=== PATIENT | female | born 1990 | race Native Hawaiian/Other Pacific Islander ===

== ENCOUNTER 2018-03-30 14:18 | Emergency (ER) | payer MEDICAID, OTHER ==
[2018-03-30] MEDS ORDERED: Lactated Ringer's 1,000 ML IV SCH (15:30)
[2018-03-30 16:18] LABS: SQUAMOUS EPITHIAL 15 /hpf (0-5); URINE BACTERIA RARE (<OCC); URINE BILIRUBIN NEGATIVE (NEGATIVE); URINE BLOOD NEGATIVE (NEGATIVE); URINE CLARITY CLOUDY (Clear); URINE COLOR YELLOW (YELLOW); URINE GLUCOSE (UA) NEG (Normal); URINE LEUKOCYTE ESTERASE NEG Leu/uL (Negative); URINE PROTEIN 30 mg/dL (NEGATIVE); URINE UROBILINOGEN 0.2-1.0 mg/dL (0.2-1.0)
--- NOTE | 2018-03-30 18:14 | OBHP ---
Datetime: 03/30/2018 15:26 IP Adm Impression: , intrauterine IP Admit Plan: Observation/Evaluation; Discharge home Admit Comment, IP Provider: 27-year-old at 36.6 weeks (based on 1st tri u/s) presents with l ower abdominal and LUQ pain since 11am today (4 hours prior to presentation). She also admits to rece nt dysuria but denies burning, chills, and fever. She admits that prior to the start of the pain she was carrying her 2.5 year old to the doctor's office. She denies loss of fluid and vaginal bleeding. Good movement. She denies any complications with thus far and has been following at a OBGYN in [place] for her care (arrived to [facility] Mar 07). Her first resulted in a , patient does not remember how many weeks she was but reports that they went home in 3 days with no complications. 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 50/-3. no active bleeding. no lesions noted. Assessment: 27-year-old at 36.6 weeks (based on 1st tri u/s) presents with lower abdominal and LUQ pain since 11am today (4 hours prior to presentation). Plan: -Urine Culture, Urinalysis -1L LR @ 999 mls/hr -EFM: Reassuring- Category I, FHR 130, moderate variability, accelerations present 15x15, no decel erations. uterus activity sporadic, no regular contractions Patient seen and discussed with Dr Zhou. -Oralia Hernandez, PGY1 [facility] [place] [facility] Addendum: Pt seen and examined by me. Agree w/ above. 27 yo at 36+6 wks w / EDC 04/21/2108 per pt who came here from [place] on 03/07/2018, reports that she has lower abdominal pain and LLQ pain since this am after carrying her 1 yo to a doctor's office. VE 50/-2 at 1518. Ua yamileth rare, sq epi 15 H, c/w contamination. Urine cx pending. Pt given IVF and tylenol. Pt reporte d that she felt better and wanted to go home. Repeat VE unchanged at 1725 and pt discharged home. FHT reactive. Pt given # to [facility]. Pt given strict labor precautions. Pt also told to bring a copy o f records from [place] when she returns to [facility]. (ES) Pelvic Type - PN: Adequate Extremities - PN: Normal Abdomen - PN: Normal Back - PN: Normal Breast - PN: Not Done Lungs - PN: Normal Heart - PN: Normal Thyroid - PN: Not Done Neurologic - PN: Not Done HEENT - PN: Not Done General - PN: Normal FHR - Baseline A Provider: 130 EGA AdmitDate IP: -15.1 Vital Signs Provider: Reviewed; Within Normal Limits IP Chief Complaint: Other NICHD Variability Prov Fetus A: Moderate 6-25bpm NICHD Accel Fetus A IP Provider: 15X15 NICHD Decel Fetus A IP Provider: None Dilatation, Provider: 2 Effacement, Provider: 50 Station, Provider: -3 Genitourinary Exam: Not Done DTRs - PN: Not Done
[2018-03-30 22:43] VITALS: BP 110/63; PULSE 92; RESP 17; O2SAT 100
== END 2018-03-30 18:15 | disposition short-term general hospital (02) ==
LOC: H.EROB2 14:18 → H.EROB 15:11 → H.EROB2 18:15
DX: O26.93 Pregnancy related conditions, unspecified, third trimester (principal); R10.2 Pelvic and perineal pain; R30.0 Dysuria; Z3A.36 36 weeks gestation of pregnancy; O47.1 False labor at or after 37 completed weeks of gestation
CPT/HCPCS: 81003; 87086; 96360; 99283; J7120

== ENCOUNTER 2018-04-08 18:45 | Emergency (ER) | payer MEDICAID, OTHER ==
--- NOTE | 2018-04-08 19:43 | OBHP ---
Datetime: 04/08/2018 19:36 IP Adm Impression: Term, intrauterine ; No Active Labor IP Admit Plan: Observation/Evaluation Admit Comment, IP Provider: The patient is a 2 para 1 estimated due date 04/21/2018 estimate d gestational age 38 weeks patient presents to labor and delivery complaining of pelvic pressure occa sional uterine contractions. Patient denies any vaginal bleeding any leakage of fluid she reports goo d movement. Patient had care and [place] patient does not have records with her she hakan es any complications throughout this . Past medical history asthma Past surgical history none No known drug allergies Medications vitamins Social history denies alcohol tobacco use Review of systems patient denies headache chest pain shortness of breath palpitations nausea vomit ing diarrhea heat or cold intolerance easy bruisability musculoskeletal or neurological complaints Vital signs stable afebrile Physical exam see notes Cervical exam 2 cm dilated and 50% effaced -2 Intrauterine at 38 weeks Observation External monitor Adequate pelvis Vertex presentation Estimated weight 7 pounds Pelvic Type - PN: Adequate Extremities - PN: Normal Abdomen - PN: Normal Back - PN: Not Done Breast - PN: Not Done Lungs - PN: Normal Heart - PN: Normal Thyroid - PN: Normal Neurologic - PN: Normal HEENT - PN: Normal General - PN: Normal FHR - Baseline A Provider: 145 Gestation - Est Wks by US: 38.0 Pool Provider: Negative EGA AdmitDate IP: 38.1 Vital Signs Provider: Reviewed IP Chief Complaint: Uterine contractions NICHD Variability Prov Fetus A: Moderate 6-25bpm NICHD Accel Fetus A IP Provider: 15X15 FHR Category Provider Fetus A: Category I NICHD Decel Fetus A IP Provider: None Dilatation, Provider: 2 Effacement, Provider: 50 Station, Provider: -2 Genitourinary Exam: Normal DTRs - PN: Normal
[2018-04-09 10:44] VITALS: BP 96/80; PULSE 112; RESP 18; TEMP 98.5; O2SAT 98
== END 2018-04-08 21:30 | disposition home or self-care (01) ==
LOC: H.EROB2 18:45
DX: O26.93 Pregnancy related conditions, unspecified, third trimester (principal); R10.2 Pelvic and perineal pain; Z3A.38 38 weeks gestation of pregnancy